=== PATIENT | male | born 1965 | race Caucasian/White ===

== ENCOUNTER 2022-12-08 20:58 | Emergency (ER) | payer BC, SELFPAY ==
[2022-12-08 21:11] VITALS: RESP 20; TEMP 36.9
[2022-12-08 21:12] VITALS: BP 117/79; PULSE 95; RESP 20; TEMP 36.9; O2SAT 96; BMI 38.0
--- NOTE | 2022-12-08 21:33 | ED_ITS ---
HPI - Fever General Chief Complaint: Fever Stated Complaint: Fever, congestion Time Seen by Provider: 12/08/22 21:14 History of Present Illness HPI Narrative: This 57-year-old male comes in reporting a fever that started about 30 minutes prior to arrival. He states that he was feeling some nasal congestion and checked his temperature initially at 100.1 and then recheck that again in his ear at 101? F. upon arrival here he has normal vital signs and a normal temperature at 98.4?. He does not report any cough. He has no other symptoms he is reporting. He is taking chemotherapy for a lymphoma. The chemotherapy began at the beginning of summer and his last dose is scheduled for a week from today. He states that he has been tolerating this well. A couple weeks ago he was at his daughter's wedding and turned positive for COVID. Three days ago he tested again with a negative results. Related Data Home Medications Medication Instructions Recorded Confirmed acyclovir .ROUTE 12/08/22 cholecalciferol (vitamin D3) .ROUTE 12/08/22 famotidine PO 12/08/22 loratadine .ROUTE 12/08/22 multivitamin (Daily Multi-Vitamin 1 tab PO DAILY 12/08/22 12/08/22 tablet) ondansetron .ROUTE 12/08/22 polyethylene glycol 3350 17 17 g PO DAILY 12/08/22 12/08/22 gram/dose oral powder (ClearLax) prednisone .ROUTE 12/08/22 prochlorperazine maleate PO 12/08/22 Allergies Allergy/AdvReac Type Severity Reaction Status Date / Time No Known Drug Allergies Allergy Verified 12/08/22 21:30 Review of Systems Status of ROS Reports: 10 or more systems reviewed and unremarkable except as noted in History and below Narrative Constitutional: No weight gain or loss. He reports a fever as stated above. Eyes: No discharge. No vision changes. HENT: No sore throat, no ear pain. He reports some nasal congestion. Cardiovascular: No chest pain, no palpitations. Respiratory: No shortness of breath, no wheezes, no cough. Gastrointestinal: No abdominal pain, no vomiting, no diarrhea. Genitourinary: No dysuria, no hematuria. Musculoskeletal: Normal range of motion. Skin: No rashes, no pruritis. Neurological: No dizziness, weakness, sensory change, speech change. Endo/Heme/Allergies: No bruising or bleeding. No polydipsia. Pysch: no suicidality, no anxiety, no insomnia. All other systems reviewed and are negative. [facility] Medical History (Updated 12/08/22 @ 22:53 by Doe Rhodes MD) Follicular lymphoma ?C82.90 - Follicular lymphoma, unspecified, unspecified site (ICD-10) Social History Smoking Status: Unknown if ever smoked Exam Narrative Exam Narrative: Constitutional: Well-developed, well-nourished, no acute distress. HEENT: Normocephalic, atraumatic. Neck: Normal range of motion. Nontender. Supple. Heart: Regular. No murmurs. Normal rate. Intact distal pulses. Lungs: Clear to auscultation. No chest discomfort. No wheezes, rhonchi, or rales. Abdomen: Normal bowel sounds. Nontender. No rebound tenderness. Genitalia: Deferred. Back: No midline tenderness. Normal range of motion. Extremities: Normal range of motion. No injury. Skin: Intact. No rash. Warm. No erythema or pallor. Neurologic: No altered sensation. No weakness. Alert and oriented. Psychiatric: No suicidality. No anxiety or depression. No insomnia. Nursing notes and vitals signs are reviewed. Const Vital Signs, click to edit/add: Vital Signs - 24 hr 12/08/22 21:11 12/08/22 21:12 Temperature 98.4 F 98.4 F Pulse Rate [Left Pulse Oximeter] 95 Respiratory Rate 20 20 Blood Pressure [Right Forearm] 117/79 Pulse Oximetry 96 Oxygen Delivery Method Room Air Room Air Course Vital Signs Vital signs: Initial Vital Signs Temperature 98.4 F 12/08/22 21:11 Temperature Source Temporal Artery Scan 12/08/22 21:11 Respiratory Rate 20 12/08/22 21:11 Respiratory Effort Normal, Spontaneous, Non-Labored 12/08/22 21:11 Respiratory Depth Normal 12/08/22 21:11 Respiratory Pattern Normal 12/08/22 21:11 Oxygen Delivery Method Room Air 12/08/22 21:11 Sepsis Recent Fever Within 48 Hours Yes 12/08/22 21:11 Sepsis New/Unexplained Change in Mental Status No 12/08/22 21:11 Sepsis Action Taken by Nursing Physician Notified 12/08/22 21:11 Vital Signs Temperature 98.4 F 12/08/22 21:11 Respiratory Rate 20 12/08/22 21:11 Oxygen Delivery Method Room Air 12/08/22 21:11 Temperature 98.4 F 12/08/22 21:12 Pulse Rate 95 12/08/22 21:12 Respiratory Rate 20 12/08/22 21:12 Blood Pressure 117/79 12/08/22 21:12 Pulse Oximetry 96 12/08/22 21:12 Oxygen Delivery Method Room Air 12/08/22 21:12 MDM - Fever MDM Narrative Medical decision making narrative: This patient comes in reporting a fever that he measured at home about 30 minutes prior to arrival. He is extra vigilant in this regard because he is undergoing chemotherapy. Throughout his time in the emergency department he has maintained normal vital signs with a normal temperature. His exam is also reassuring. He is undergoing chemotherapy for a lymphoma and his symptoms have improved greatly during these courses of treatments. His last 1 is scheduled for next week. He was positive for COVID a couple weeks ago and did take Paxil of id and also got immune globulin. He states that he had a negative test s everal days ago but his test today is positive. It seems more likely to me that he has ongoing symptoms related to COVID that are rather mild and not so likely that he has a new infection. In any case he has normal vital signs. It does not seem appropriate to repeat these treatments that he just finished. He is okay to be discharged home. He understands signs and symptoms that would indicate a need for return and re-evaluation if they occur. Lab Data Labs: Lab Results 12/08/22 12/08/22 12/08/22 Range/Units 21:50 21:58 22:00 WBC 7.25 (4.50-11.00) K/uL RBC 3.91 L (4.30-5.90) m/uL Hgb 12.3 L (13.5-17.5) gm/dL Hct 36.4 L (37.0-53.0) % MCV 93 (80-100) fL MCH 32 (26-34) pg MCHC 34 (32-36) gm/dL RDW Coeff of Mary 16.6 H (11.5-15.5) % Plt Count 240 (140-440) K/uL Neut % (Auto) 74.9 H (42.0-72.0) % Lymph % (Auto) 9.2 L (20-44) % [place] % (Auto) 13.1 H (0.0-11.0) % Eos % (Auto) 1.0 (0.0-7.0) % Baso % (Auto) 1.0 (0.0-3.0) % Neut # (Auto) 5.40 (1.7-7.0) K/uL Lymph # (Auto) 0.70 L (0.90-2.90) K/uL [place] # (Auto) 0.90 (0.00-0.90) K/UL Eos # (Auto) 0.07 (0.00-0.50) K/uL Baso # (Auto) 0.07 (0.00-0.30) K/uL Abs Immat Gran (auto) 0.06 (0.00-0.30) K/uL Imm/Tot Granulo (auto) 0.8 % Sodium 134 L (135-149) mmol/L Potassium 4.2 (3.6-5.1) mmol/L Chloride 102 (96-114) mmol/L Carbon Dioxide 25 (20-32) mmol/L Anion Gap 7 (7-15) mEq/L BUN 19 (7-30) mg/dL Creatinine 0.8 (0.5-1.5) mg/dL Estimated Creat Clear 114.51 Estimated GFR 105 ml/min Glucose 92 (60-115) mg/dL Calcium 9.2 (8.4-10.6) mg/dL Urine Color Yellow (Yellow) Urine Appearance Clear (Clear) Urine pH 7.0 (5.0-8.5) Ur Specific [place] 1.010 (1.000-1.030) Urine Protein Negative (Negative) Urine Glucose (UA) Negative (Negative) Urine Ketones Negative (Negative) Urine Blood Negative (Negative) Urine Nitrite Negative (Negative) Urine Bilirubin Negative (Negative) Urine Urobilinogen 0.2 (0.2-1.0) Ur Leukocyte Esterase Negative (Negative) Urine RBC 0-2 (0-2) Urine WBC 0-2 (0-5) Ur Squamous Epith Cells Few (None-Few) Urine Bacteria None (None) SARS-CoV-2 Ag (Rapid) POSITIVE (Negative) Discharge Plan Discharge Clinical Impression: COVID, Lymphoma Patient Disposition: Home w/ Parent or Adult Condition: Stable Additional Instructions: Continue current plans. Follow up with MD or return if worsening symptoms occur. Prescriptions: No Action acyclovir .ROUTE polyethylene glycol 3350 [ClearLax] 17 gram/dose powder 17 g PO DAILY cholecalciferol (vitamin D3) .ROUTE prednisone .ROUTE loratadine .ROUTE multivitamin [Daily Multi-Vitamin] Tablet 1 tab PO DAILY prochlorperazine maleate PO ondansetron .ROUTE famotidine PO Follow Up/Referrals: Provider,Not a Local [Primary Care Provider] - Stand Alone Forms: [employer] Info Instructions
[2022-12-08 22:02] LABS: Basophils Absolute Auto 0.07 K/uL (0.00-0.30); Eosinophils Absolute Auto 0.07 K/uL (0.00-0.50); Hematocrit 36.4 % (37.0-53.0); Hemoglobin* 12.3 gm/dL (13.5-17.5); Immature Granulocytes Abs Auto 0.06 K/uL (0.00-0.30); Immature Granulocytes Pct Auto 0.8 %; Lymphocytes Percent Auto 9.2 % (20-44); Mean Corpuscular HGB Conc 34 gm/dL (32-36); Mean Corpuscular Hemoglobin 32 pg (26-34); Mean Corpuscular Volume 93 fL (80-100); Monocytes Percent Auto 13.1 % (0.0-11.0); Neutrophils Percent Auto 74.9 % (42.0-72.0); Platelet Count* 240 K/uL (140-440); RDW Coefficient of Variation % 16.6 % (11.5-15.5); Red Blood Count 3.91 m/uL (4.30-5.90); White Blood Count* 7.25 K/uL (4.50-11.00)
[2022-12-08 22:03] LABS: Appearance Urine Clear (Clear); Bilirubin Urine Negative (Negative); Blood Urine Negative (Negative); Color Urine Yellow (Yellow); Glucose Urine Negative (Negative); Ketones Urine Negative (Negative); Leukocyte Esterase Urine Negative (Negative); Nitrite Urine Negative (Negative); Protein Urine Negative (Negative); Urobilinogen Urine 0.2 (0.2-1.0)
[2022-12-08 22:13] LABS: RBC Urine 0-2 (0-2); Squamous Epithelial Cell Urine Few (None-Few); WBC Urine 0-2 (0-5)
[2022-12-08 22:17] LABS: Slide Review Reflex No
[2022-12-08 22:28] LABS: SARS Antigen* POSITIVE (Negative)
[2022-12-08 22:34] LABS: Chloride* 102 mmol/L (96-114); Potassium* 4.2 mmol/L (3.6-5.1); Sodium* 134 mmol/L (135-149)
[2022-12-08 22:36] LABS: Creatinine* 0.8 mg/dL (0.5-1.5); Est. Creatinine Clearance* 114.51; Estimated Glomerular Filt Rate 105 ml/min
[2022-12-08 22:37] LABS: Anion Gap 7 mEq/L (7-15); Blood Urea Nitrogen* 19 mg/dL (7-30); Calcium* 9.2 mg/dL (8.4-10.6); Carbon Dioxide* 25 mmol/L (20-32); Glucose* 92 mg/dL (60-115)
[2022-12-08 22:46] LABS: PCR FLU A Negative PCR FLU A (Negative); PCR FLU B Negative PCR FLU B (Negative)
[2022-12-08 23:01] LABS: SARS PCR* POSITIVE SARS-CoV-2 (Negative)
== END 2022-12-08 22:55 | disposition home or self-care (01) ==
PROVIDERS: Emergency Provider Emergency Medicine Emergency Medical Services
DX: U07.1 COVID-19 (principal)
CPT/HCPCS: 36415; 80048; 81001; 85025; 87426; 87631; 99283; 99284